=== PATIENT | female | born 1930 | race Caucasian/White ===

== ENCOUNTER 2018-03-23 18:26 | Emergency (ER) | payer OTHER ==
[~2018-03-23] VITALS: Ht 157.5 cm; Wt 55.8 kg
[2018-03-23] MEDS ORDERED: TOPROL XL25 M1 (18:41)
== END 2018-03-24 00:11 | disposition home or self-care (01) ==
LOC: ER 18:26
DX: S23.3XXA Sprain of ligaments of thoracic spine, initial encounter (principal); S33.5XXA Sprain of ligaments of lumbar spine, initial encounter; W06.XXXA Fall from bed, initial encounter; Y93.89 Activity, other specified; Y92.092 Bedroom in other non-institutional residence as the place of occurrence of the external cause; Y99.8 Other external cause status